=== PATIENT | female | born 1980 | race Caucasian/White ===

== ENCOUNTER 2017-08-07 14:44 | Emergency (ER) | payer OTHER ==
[2017-08-07] MEDS ORDERED: LORazepam 2 MG/ML INJ ONE (15:03)
[2017-08-07] MEDS ORDERED: NS 1,000 ML IV ONE (15:05)
[2017-08-07] MEDS ORDERED: LORazepam 2 MG/ML INJ IVP ONE (15:05)
--- NOTE | 2017-08-07 15:09 | CPEKG ---
Heart Rate: 106 RR Interval: 566 P-R Interval: 152 QRSD Interval: 92 QT Interval: 396 QTC Interval: 526 P [place]: 84 QRS [place]: 98 T [place]: 31 EKG Severity - ABNORMAL ECG - EKG Impression: SINUS TACHYCARDIA EKG Impression: MULTIFORM VENTRICULAR PREMATURE COMPLEXES EKG Impression: BORDERLINE RIGHT AXIS DEVIATION EKG Impression: LOW VOLTAGE IN FRONTAL LEADS EKG Impression: PROLONGED QT INTERVAL Electronically Signed By: Jewel Arcos 07-Aug-2017 17:37:19
--- NOTE | 2017-08-07 15:17 | EDPHY ---
H & P Time Seen by Provider: 08/07/17 14:56 HPI/ROS: Chief complaint. Chest pain HPI. Patient is a 36-year-old female presents emergency department per EMS with anxiety in tachycardia and chest pain. She was well this morning until she took a diet supplement the formulated to their lose weight. The bottle contains by doctor caffeine and the Theobromine mean among other chemicals. She then about 30 min later began to feel shaky. She tells me she drank 8 bottles water and then had diarrhea. She has tightness in her chest and some sharpness to the left anterior chest that radiates to her shoulder. The symptoms began around 11 30 or noon today. Slight shortness of breath. No known history of heart or lung problems and again the patient was well until she took the diet supplement. She received Versed IV per EMS prior to arrival. No unusual leg pain or swelling. She has taken the medication 3 or 4 times before without some symptoms. ROS Constitutional. Shakiness Eyes. no problems with vision ENT. no sore throat, no nasal drainage Cardiovascular. Chest pain Respiratory. Shortness of breath Abdominal. Diarrhea . no problems urinating MS. no calf pain/swelling, no neck/back pain, no joint pain Skin. no rash Lymph. no swollen glands Neuro. no headache, no dizziness, no difficulty walking or with speech Past Medical/Surgical History: Hypothyroid Social History: , nonsmoker, no alcohol Smoking Status: Former smoker Physical Exam: General Appearance: Alert somewhat tremulous well-developed female moderate distress vital signs are stable Eyes: Pupils equal and round no pallor or injection. ENT, Mouth: Mucous membranes are moist. Respiratory: There are no retractions, lungs are clear to auscultation. Cardiovascular: Regular rate and rhythm. Gastrointestinal: Abdomen is soft and nontender, no masses, bowel sounds normal. Neurological: Awake and alert, sensory and motor exams grossly normal. Skin: Warm and dry, no rashes. Musculoskeletal: Neck is supple nontender. Extremities symmetrical, full range of motion. Psychiatric: Patient is oriented X 3, there is no agitation. Constitutional: Initial Vital Signs Temperature (C) 37.1 C 08/07/17 14:46 Heart Rate 82 08/07/17 14:46 Respiratory Rate 18 08/07/17 14:46 Blood Pressure 122/90 H 08/07/17 14:46 O2 Sat (%) 100 08/07/17 14:46 O2 Delivery Mode Room Air Allergies/Adverse Reactions: Penicillins Allergy (Verified 08/07/17 14:52) Home Medications: Medication Instructions Recorded Levothyroxine 08/07/17 Medical Decision Making - Diagnostics EKG Interpretation: EKG interpreted by me shows sinus tachycardia normal interval and axis. QRS is normal there is no significant ST elevation or depression. No arrhythmia. The rate is 106 Procedures: IV normal saline. Monitor. IV Ativan. ED Course/Re-evaluation: Re-evaluation 3:45 p.m.. Patient is stable. Feeling better though still having some chest discomfort. She is up to urinate. Patient and I discussed laboratory an EKG evaluation. We discussed treatment plan including repeating troponin and electrolytes in about 1 hr. She expresses understanding and agreement Re-evaluation at 5:20 p.m. Patient's symptoms have resolved. She is stable. She feels much better. Her repeat lab work is reassuring. She and I discussed laboratory evaluation, treatment plan including criteria for return importance of follow-up and further evaluation. She expresses understanding and agreement Differential Diagnosis: This would be a sympathomimetic toxidrome secondary to the diet supplement that she took. She then drank about 8 glasses of water and had hyponatremia. The hyponatremia is resolving. Serial troponins are negative. I considered acute coronary syndrome as well as tachy dysrhythmias. - Data Points Laboratory Results: Laboratory Results 08/07/17 14:15 08/07/17 16:40 08/07/17 08/07/17 08/07/17 16:40 14:15 14:15 WBC RBC Hgb Hct MCV MCH MCHC RDW Plt Count MPV Neut % (Auto) Lymph % (Auto) [place] % (Auto) Eos % (Auto) Baso % (Auto) Nucleat RBC Rel Count Absolute Neuts (auto) Absolute Lymphs (auto) Absolute Monos (auto) Absolute Eos (auto) Absolute Basos (auto) Absolute Nucleated RBC Immature Gran % Immature Gran # Sodium 132 mEq/L L mEq/L 126 mEq/L L mEq/L 126 mEq/L L mEq/L (135-145) (135-145) (135-145) Potassium 4.6 mEq/L mEq/L 4.3 mEq/L mEq/L 4.2 mEq/L mEq/L (3.3-5.0) (3.3-5.0) (3.3-5.0) Chloride 101 mEq/L mEq/L 89 mEq/L L mEq/L 89 mEq/L L mEq/L (97-110) (97-110) (97-110) Carbon Dioxide 19 mEq/l L mEq/l 15 mEq/l L mEq/l 15 mEq/l L mEq/l (22-31) (22-31) (22-31) Anion Gap 12 mEq/L mEq/L 22 mEq/L H mEq/L 22 mEq/L H mEq/L (8-16) (8-16) (8-16) BUN 8 mg/dL mg/dL 9 mg/dL mg/dL 8 mg/dL mg/dL (7-23) (7-23) (7-23) Creatinine 0.6 mg/dL mg/dL 0.7 mg/dL mg/dL 0.7 mg/dL mg/dL (0.6-1.0) (0.6-1.0) (0.6-1.0) Estimated GFR > 60 > 60 > 60 Glucose 75 mg/dL mg/dL 111 mg/dL H mg/dL 112 mg/dL H mg/dL (70-100) (70-100) (70-100) Calcium 8.2 mg/dL L mg/dL 9.6 mg/dL mg/dL 9.7 mg/dL mg/dL (8.5-10.4) (8.5-10.4) (8.5-10.4) Troponin I < 0.012 ng/mL ng/mL < 0.012 ng/mL ng/mL < 0.012 ng/mL ng/mL (0.000-0.034) (0.000-0.034) (0.000-0.034) 08/07/17 14:15 WBC 7.78 10^3/uL 10^3/uL (3.80-9.50) RBC 4.90 10^6/uL 10^6/uL (4.18-5.33) Hgb 15.3 g/dL g/dL (12.6-16.3) Hct 44.2 % % (38.0-47.0) MCV 90.2 fL fL (81.5-99.8) MCH 31.2 pg pg (27.9-34.1) MCHC 34.6 g/dL g/dL (32.4-36.7) RDW 12.5 % % (11.5-15.2) Plt Count 353 10^3/uL 10^3/uL (150-400) MPV 9.5 fL fL (8.7-11.7) Neut % (Auto) 59.0 % % (39.3-74.2) Lymph % (Auto) 29.7 % % (15.0-45.0) [place] % (Auto) 9.8 % % (4.5-13.0) Eos % (Auto) 0.3 % L % (0.6-7.6) Baso % (Auto) 0.8 % % (0.3-1.7) Nucleat RBC Rel Count 0.0 % % (0.0-0.2) Absolute Neuts (auto) 4.60 10^3/uL 10^3/uL (1.70-6.50) Absolute Lymphs (auto) 2.31 10^3/uL 10^3/uL (1.00-3.00) Absolute Monos (auto) 0.76 10^3/uL 10^3/uL (0.30-0.80) Absolute Eos (auto) 0.02 10^3/uL L 10^3/uL (0.03-0.40) Absolute Basos (auto) 0.06 10^3/uL 10^3/uL (0.02-0.10) Absolute Nucleated RBC 0.00 10^3/uL 10^3/uL (0-0.01) Immature Gran % 0.4 % % (0.0-1.1) Immature Gran # 0.03 10^3/uL 10^3/uL (0.00-0.10) Sodium Potassium Chloride Carbon Dioxide Anion Gap BUN Creatinine Estimated GFR Glucose Calcium Troponin I Medications Given: Discontinued Medications Sodium Chloride (Ns) 1,000 mls @ 0 mls/hr IV ONCE ONE; Wide Open PRN Reason: Protocol Stop: 08/07/17 15:06 Last Admin: 08/07/17 15:06 Dose: 1,000 mls Lorazepam (Ativan Injection) 1 mg IVP EDNOW ONE Stop: 08/07/17 15:06 Last Admin: 08/07/17 15:07 Dose: 1 mg Departure - Departure Disposition: Home, Routine, Self-Care Clinical Impression: Chest pain Qualifiers: Chest pain type: unspecified Qualified Code(s): R07.9 - Chest pain, unspecified Condition: Good Instructions: Chest Pain (ED) Additional Instructions: Easy activity the rest of the day. Return for worsening symptoms. Recheck in 1 -2 days if not continuing to improve Referrals: NONE *PRIMARY CARE P,. [Primary Care Provider] - As per Instructions
[2017-08-07 15:18] LABS: PLATELET COUNT 353 10^3/uL (150-400)
[2017-08-07 16:59] VITALS: BP 110/69
== END 2017-08-07 17:47 | disposition home or self-care (01) ==
DX: R07.9 Chest pain, unspecified (principal); E86.9 Volume depletion, unspecified; Z87.891 Personal history of nicotine dependence
CPT/HCPCS: 96374; J2060